=== PATIENT | female | born 1945 | race Caucasian/White ===

== ENCOUNTER 2020-08-18 21:33 | Emergency (ER) | payer MEDICARE, BC, OTHER ==
[~2020-08-18] VITALS: Ht 162.6 cm; Wt 55.5 kg
[~2020-08-18 21:33] MED LIST: ASPI325T8 PO; CALC600T23 PO; CHOL200074 PO; CRESTOR40 MG PO; CYAN1TAB28 PO; ESOM40CA25 PO; INSU100V31 SQ; LORA0.5T PO; RISE35TA3 PO; VITA-8 PO
--- NOTE | 2020-08-18 21:43 | PHYS DOC ---
General Adult HPI: HPI: ".. My was diagnosed with Covid on Sunday.. now I feeling .. like I got the flu... Generalized malaise, fever, chills, overall body aches ,... Tired, fatigued a week ...I probably got the Covid also..;." Patient is a 75 year old female who presents with above hx and complaints of COVID exposure with her now also complaining of fever, chills, malaise, arthralgia, myalgia, and fatigue. Patient normally follows with Dr. Nelson for care. No history of specific ill ill contacts outside the family other than her who was recently diagnosed with Covid. Patient denies any use immunosuppression. No recent travel. Review of Systems: Review of Systems: Constitutional: Complains of fever or chills Eyes: Denies change in visual acuity HENT: Denies nasal congestion or sore throat. Complains of loss of taste Respiratory: Complaints of cough Cardiovascular: Denies chest pain or edema GI: Denies abdominal pain, nausea, vomiting, bloody stools or diarrhea : Denies dysuria Musculoskeletal: Denies back pain or joint pain Integument: Denies rash Neurologic: Denies headache, focal weakness or sensory changes Endocrine: Denies polyuria or polydipsia Lymphatic: Denies swollen glands Psychiatric: Denies depression or anxiety Family History: Family History: has Covid Current Medications: Current Meds: See nursing for home meds Allergies: Allergies: Allergies Coded Allergies Type Severity Reaction Last Updated Verified Penicillins Adverse Reaction Intermediate Rash 03/09/14 Yes Physical Exam: PE: Constitutional: Moderate acute distress, non-toxic appearance. [] HENT: Normocephalic, atraumatic, bilateral external ears normal, oropharynx dry, no oral exudates, nose swollen turbinates and clear rhinorrhea Eyes: PERRLA, EOMI, conjunctiva normal, no discharge. [] Neck: Normal range of motion, no tenderness, supple, no stridor. [] Cardiovascular: Tachycardia heart rate regular rhythm, no murmur [] Lungs & Thorax: Bilateral breath sounds equal apex with few scattered wheezes on auscultation [] Abdomen: Bowel sounds normal, soft, no tenderness, no masses, no pulsatile masses. [] Skin: Warm, dry, no erythema, no rash. [Poor turgor Back: No tenderness, no CVA tenderness. [] Extremities: No tenderness, no cyanosis, no clubbing, ROM intact, no edema. Arthritic changes. No cording appreciated Neurologic: Alert and oriented X 3, moves all extremities on request, does have distal sensory, no focal deficits noted. [] Psychologic: Affec anxious, judgement normal, mood normal. [] EKG: EKG: My interpretation EKG shows a sinus rhythm at 91 bpm. Low voltage in limb leads. No findings of acute STEMI of contralateral changes. [] Radiology/Procedures: Radiology/Procedures: [][address] [place] [address] [id number] IMAGING REPORT Signed PATIENT: LAURIE MCINTYRE ACCOUNT: [id number] : 1945 LOCATION: ER AGE: 75 SEX: F EXAM STATUS: PRE ER ORD. PHYSICIAN: JAVIER MOJICA MD REASON: dyspnea PROCEDURE: PORTABLE CHEST 1V XR CHEST 1V History: Reason: dyspnea / Spl. Instructions: / History: Comparison: None. Findings: No consolidation or pleural effusion. Normal heart size. No pneumothorax. Impression: 1. No acute cardiopulmonary process. Electronically signed by: Osman Christina DO (08/18/2020 11:01 PM) [facility] DICTATED AND SIGNED BY: OSMAN CHRISTINA DO DATE: 08/18/20 3090 CC: JAVIER MOJICA MD; CL[facility] NELSON Heart Score: HEART Score for Chest Pain: HEART Score for Chest Pain Response (Comments) Value History Slighlty/Non-Suspicious 0 ECG Normal 0 Age > 65 2 Risk Factors 1 or 2 Risk Factors 1 Troponin < Normal Limit 0 Total 3 Risk Factors: Risk Factors: DM, Current or recent (<one month) smoker, HTN, HLP, family history of CAD, obesity. Risk Scores: Score 0 - 3: 2.5% MACE over next 6 weeks - Discharge Home Score 4 - 6: 20.3% MACE over next 6 weeks - Admit for Clinical Observation Score 7 - 10: 72.7% MACE over next 6 weeks - Early Invasive Strategies Course & Med Decision Making: Course & Med Decision Making Pertinent Labs and Imaging studies reviewed. (See chart for details) Patient to take Eliquis 2.5 mg twice a day. Patient to use MDI 2 puffs 4 times a day. Take Zithromax 250 mg a day. Patient take Tylenol and ibuprofen for discomfort. Self isolate. Wear a mask when she is around others or outside her home. Mass must cover nose and mouth. Patient to follow-up with primary care. Patient to use her home oxygen monitor to evaluate periodically through the d ay for decrease in saturations. Return if any concerns. Patient advised he most likely has Covid due to her close exposure. Impression: 1. Viral syndrome 2. History of close exposure to Covid- 3. Mild anemia hemoglobin 11.6 4. Thrombocytopenia 137 5. Mild dehydration elevated creatinine 1.3 6. Diabetes glucose 215 [] Dragon Disclaimer: Dragon Disclaimer: This electronic medical record was generated, in whole or in part, using a voice recognition dictation system. Departure Departure: Referrals: CLIFF NELSON (PCP) Scripts Apixaban (ELIQUIS) 2.5 Mg Tablet 2.5 MG PO BID for COVID for 14 Days, #28 TAB Prov: JAVIER MOJICA MD 08/18/20 Azithromycin (ZITHROMAX) 250 Mg Tablet 250 MG PO DAILY for ANTI-BIOTIC, #5 TAB 0 Refills Prov: JAVIER MOJICA MD 08/18/20 Benita Disclaimer This chart was dictated in whole or in part using Voice Recognition software in a busy, high-work load, and often noisy Emergency Department environment. It may contain unintended and wholly unrecognized errors or omissions. JAVIER MOJICA MD Aug 18, 2020 21:43
[2020-08-18] MEDS ORDERED: IV RINGERS SOLUTION,LACTATED 1,000 ML IV SCH (21:45)
[2020-08-18] MEDS ORDERED: ALBUTEROL SULFATE 8GM INHALER. INH ONE (21:45)
[2020-08-18] MEDS ORDERED: ACETAMINOPHEN 500 MG TABLET PO ONE (22:00)
[2020-08-18 22:40] LABS: BASO % 1 % (0-3); EOS % 1 % (0-3); HEMATOCRIT 35.1 % (36.0-47.0); HEMOGLOBIN 11.6 g/dL (12.0-15.5); LYMPH % 21 % (24-48); MEAN CORPUSCULAR HEMOGLOBIN 32 pg (25-35); MEAN CORPUSCULAR HGB CONC 33 g/dL (31-37); MEAN CORPUSCULAR VOLUME 97 fL (79-100); MONO # 0.5 x10^3/uL (0.0-1.1); MONO % 10 % (0-9); NEUT # 3.1 x10^3uL (1.8-7.7); NEUT % 67 % (31-73); PLATELET COUNT 137 x10^3/uL (140-400); RED BLOOD COUNT 3.62 x10^6/uL (3.50-5.40); RED CELL DISTRIBUTION WIDTH 13.2 % (11.5-14.5); WHITE BLOOD COUNT 4.7 x10^3/uL (4.0-11.0)
[2020-08-18 22:49] LABS: INFLUENZA A PATIENT NEGATIVE (NEGATIVE); INFLUENZA B PATIENT NEGATIVE (NEGATIVE)
[2020-08-18 22:58] LABS: CALCIUM 9.3 mg/dL (8.5-10.1); CREATININE 1.3 mg/dL (0.6-1.0); GFR 40.2; POTASSIUM 3.7 mmol/L (3.5-5.1)
--- NOTE | 2020-08-18 23:03 | RAD ---
XR CHEST 1V History: Reason: dyspnea / Spl. Instructions: / History: Comparison: None. Findings: No consolidation or pleural effusion. Normal heart size. No pneumothorax. Impression: 1. No acute cardiopulmonary process. Electronically signed by: Osman Christina DO (08/18/2020 11:01 PM) [facility]
[2020-08-18 23:10] LABS: ALBUMIN 3.4 g/dL (3.4-5.0); DIRECT BILIRUBIN 0.2 mg/dL (0.0-0.2); MAGNESIUM 1.9 mg/dL (1.8-2.4); TOTAL BILIRUBIN 0.6 mg/dL (0.2-1.0); TOTAL PROTEIN 7.9 g/dL (6.4-8.2)
[2020-08-18 23:40] VITALS: BP 117/51
[2020-08-18] MEDS ORDERED: AZITHROMYCIN 250 MG TABLET. PO ONE (23:45)
[2020-08-18] MEDS ORDERED: APIXABAN 5 MG TABLET. PO ONE (23:45)
[2020-08-18] MEDS ORDERED: AZIT250T PO (23:58)
[2020-08-18] MEDS ORDERED: APIX2.5T PO (23:58)
[2020-08-19 00:23] LABS: BGAS PH 7.48 (7.35-7.45)
--- NOTE | 2020-08-19 02:32 | EKG ---
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
== END 2020-08-19 00:54 | disposition home or self-care (01) ==
LOC: ER 21:33
DX: U07.1 COVID-19 (principal); B34.9 Viral infection, unspecified; D64.9 Anemia, unspecified; D69.6 Thrombocytopenia, unspecified; E86.0 Dehydration; R79.89 Other specified abnormal findings of blood chemistry; E11.9 Type 2 diabetes mellitus without complications; Z88.0 Allergy status to penicillin
CPT/HCPCS: 36415; 36600; 71045; 80048; 80076; 82550; 82803; 82947; 83690; 83735; 84443; 84484; 85025; 85379; 85610; 85730; 86140; 87040; 87804; 93005; 94640; 96360; 96361; 99285; C9803; J7120; U0003; 94664

== ENCOUNTER 2020-08-20 23:43 | Emergency (ER) | payer MEDICARE, BC, OTHER ==
[~2020-08-20] VITALS: Ht 162.6 cm; Wt 55.5 kg
[~2020-08-20 23:43] MED LIST changes: +APIX2.5T PO; +AZIT250T PO
[2020-08-21] MEDS ORDERED: ONDANSETRON PF 4 MG/2 ML VIAL. ONE (00:06)
--- NOTE | 2020-08-21 00:13 | PHYS DOC ---
Past History Past Medical History: Cancer, GERD, High Cholesterol, Hypotension Additional Past Medical Histor: colon cancer, gastroparesis Past Surgical History: Cholecystectomy, , Hysterectomy, Other Additional Past Surgical Histo: colon resection, trigger finger release, carpal tunnel release Alcohol Use: None Adult General Chief Complaint Chief Complaint: WEAKNESS/GENERALIZED HPI HPI Patient is a 75-year-old female who presents with a chief complaint of fatigue and shakiness over the past day. States she has a past medical history significant for insulin-dependent diabetes, and high cholesterol and positive Covid test yesterday. States her also has Covid. States that over the last day she is just felt more fatigued than usual, and a little shaky. States that she did eat a little bit yesterday but not quite the same as she usually does. States she did take her insulin regimen exactly the same way however. Denies fevers, headache, chest pain, shortness of breath, abdominal pain, dysuria, hematuria or blood in the stool. Endorses mild nausea but no vomiting. Denies any recent travel or traumas. Denies any alcohol or drug use. Denies any numbness/weakness/tingling, confusion or slurred speech. States she was seen in the emergency department and started on azithromycin but not sure why. Review of Systems Review of Systems Review of systems otherwise unremarkable except noted in HPI Current Medications Current Medications Current Medications Medications (Trade) Dose Ordered Sig/Delia Start Time Stop Time Status Last Admin Dose Admin Lactated Ringer's 1,000 ml @ 1,000 mls/hr 1X ONCE 08/21/20 00:15 08/21/20 01:14 UNV 08/21/20 00:10 1,000 MLS/HR Ondansetron HCl (Zofran) 4 mg 1X ONCE 08/21/20 00:15 08/21/20 00:16 UNV 08/21/20 00:10 4 MG Allergies Allergies Allergies Coded Allergies Type Severity Reaction Last Updated Verified Penicillins Adverse Reaction Intermediate Rash 08/18/20 Yes Physical Exam Physical Exam Constitutional: Well developed, well nourished, no acute distress, non-toxic appearance. [] HENT: Normocephalic, atraumatic, oropharynx moist, no oral exudates, nose normal. [] Eyes: conjunctiva normal, no discharge. [] Neck: Normal range of motion, no tenderness, supple, no stridor. [] Cardiovascular:Heart rate regular rhythm, no murmur [] Lungs & Thorax: Generalized rhonchi with no wheeze and no accessory muscle use. No tachypnea. 95% on room air. Abdomen: soft, no tenderness, no masses, no pulsatile masses. [] Skin: Warm, dry, no erythema, no rash. [] Back: No tenderness, no CVA tenderness. [] Extremities: No tenderness, no cyanosis, no clubbing, ROM intact, no edema. [] Neurologic: Alert and oriented X 3, normal motor function, normal sensory function, no focal deficits noted. [] Psychologic: Affect normal, judgement normal, mood normal. [] Current Patient Data Vital Signs Vital Signs Date Time Temp Pulse Resp B/P (MAP) Pulse Ox O2 Delivery O2 Flow Rate FiO2 08/20/20 23:56 99.8 80 18 92/42 (59) 95 Room Air EKG EKG Rate of 76, QRS of 90, QTc of 418, no STEMI [] Radiology/Procedures Radiology/Procedures [] Heart Score Risk Factors: Risk Factors: DM, Current or recent (<one month) smoker, HTN, HLP, family history of CAD, obesity. Risk Scores: Risk Factors: DM, Current or recent (<one month) smoker, HTN, HLP, family history of CAD, obesity. Course & Med Decision Making Course & Med Decision Making Patient is a 75-year-old female, Covid positive who presents with fatigue and shakiness for day Vital signs initially notable for hypotension which resolved in the ED after fluid resuscitation. Physical exam noted above. EKG noted above with no STEMI. Patient placed on the monitor with IV access established and IV fluid resuscitation given. Given ibuprofen. Patient took Tylenol just before coming. Given Zofran. Laboratory analysis notable for a mild elevation in creatinine, most likely due to dehydration. TSH and blood cultures pending and will be back on this visit. On reassessment patient stated she was feeling a lot better and was able to take p.o. crackers and soda in the ED. Vital signs improved, patient was feeling better and was ready to be discharged home. Advised to follow-up with primary care on Sunday. Gave strict return pr ecautions to the ED. Advised to keep quarantine as she was doing. Patient was grateful, verbalized understanding and agreed with plan of discharge. [] Dragon Disclaimer Dragon Disclaimer This electronic medical record was generated, in whole or in part, using a voice recognition dictation system. Departure Departure: Impression: Primary Impression: Fatigue Additional Impression: Lab test positive for detection of COVID-19 virus Disposition: 01 DC HOME SELF CARE/HOMELESS Condition: GOOD Referrals: CLIFF MENDIETA (PCP) Patient Instructions: Fatigue Additional Instructions: You have been diagnosed with COVID-19. It is an infection caused by a new type of coronavirus. COVID-19 will cause cold-like or mild flu symptoms in most. It can cause more severe symptoms like problems breathing in some. There is no treatment for COVID-19. The body will clear the infection over time. Self-care will help to ease discomfort. Steps to Take: Self-Care Rest as needed. Healthy habits may help you feel better. Steps include: Choose healthy foods including fruits and vegetables. Drink water throughout the day. Get plenty of sleep each night. If you smoke, try to quit. It may ease breathing. Avoid alcohol. Keep Others Healthy The virus can spread to others. Droplets are released every time you sneeze or cough. The droplets can get into the mouth, nose, or eyes of people near you and lead to infection. To lower the chances of spreading COVID-19 to others: Stay at home until your doctor has said it is safe to leave. If you tested positive this will mean staying isolated until both of the following are true: At least 7 days have passed since the start of illness. You are free of fever for at least 72 hours without the use of medicine. During this time: - Avoid public areas, events, or transportation. Do not return to work or school until your doctor has said it is safe to do so. - Call ahead if you need to go to a medical center. Let them know you may have COVID-19. It will help them guide you where to go. They may also ask you to wear a facemask when you come to the office. - If you call for emergency medical services, let them know you may have COVID-19. While at home: - Try to avoid close contact with others. Stay about 6 feet away. - If possible, spend most of your time in a separate room from others. - Use a face mask if you will be in close contact with others such as sharing a room or vehicle. - Have someone wipe down common surfaces in the home. Use household back up scan coordinator every day on areas like doorknobs, counters, or sinks. - Cough or sneeze into a tissue. Throw the tissue away right after use. If a tissue is not available, cough or sneeze into your elbow. - Wash your hands often. Wash them after sneezing or coughing. Use soap and water and wash for at least 20 seconds. Alcohol based hand pattern cleaner can be used if soap and water is not available. - Do not prepare food for others. Avoid sharing personal items like forks, spoons, or toothbrushes. - Avoid close contact with pets while you are sick. There is no evidence of the virus passing to pets. This is a safety step until more is known about this virus. Isolation can be frustrating. Social interaction can help. Keep in touch with friends and family through phone and tech options. You can still interact with others in your home, just keep a safe distance of about 6 feet. Follow-up: Your doctors office will check in with you to see if there are any changes in your health. You may be asked to keep track of symptoms to share with them. They will also let you know when you are clear to be in public again. Problems to Look Out For: Contact your doctor if your recovery is not going as you expect. Get emergency care if you have problems such as: - Trouble breathing - Nonstop chest pain or pressure - Changes in awareness, confusion, or problems waking - Lips or face have bluish color - Worsening of symptoms If you think you have an emergency, call for emergency medical services right away. As taken from [facility] Scripts Ondansetron Hcl (ZOFRAN) 4 Mg Tablet 1 TAB PO PRN Q6HRS PRN for NAUSEA, #12 TAB 1 Refill Prov: DIYA WHALEY MD 08/21/20 Problem Qualifiers DIYA WHALEY MD Aug 21, 2020 00:13
[2020-08-21] MEDS ORDERED: ONDANSETRON PF 4 MG/2 ML VIAL. IVP ONE (00:15)
[2020-08-21] MEDS ORDERED: IV RINGERS SOLUTION,LACTATED 1,000 ML IV ONE ×2 (00:15→01:15)
--- NOTE | 2020-08-21 00:21 | EKG ---
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
--- NOTE | 2020-08-21 00:40 | RAD ---
AP portable chest radiograph 08/20/2020 Clinical History: Cough and congestion. An AP erect portable digital radiograph of the chest was obtained. Comparison study is dated 08/18/2020. The cardiac silhouette is normal in size. The thoracic aorta is mildly tortuous. Atherosclerotic calc ification thoracic aorta is seen. No acute pulmonary infiltrate is seen. No pleural effusion or pneum othorax is noted. The osseous structures are unchanged. Impression: No acute abnormality is seen. Electronically signed by: Gregory Lane MD (08/21/2020 12:37 AM) [id number]
[2020-08-21 01:14] LABS: CALCIUM 8.9 mg/dL (8.5-10.1); CREATININE 1.2 mg/dL (0.6-1.0); POTASSIUM 4.1 mmol/L (3.5-5.1)
[2020-08-21 01:15] LABS: BASO % 0 % (0-3); EOS % 0 % (0-3); HEMOGLOBIN 10.7 g/dL (12.0-15.5); LYMPH # 0.4 x10^3/uL (1.0-4.8); LYMPH % 10 % (24-48); MEAN CORPUSCULAR HEMOGLOBIN 32 pg (25-35); MEAN CORPUSCULAR HGB CONC 33 g/dL (31-37); MEAN CORPUSCULAR VOLUME 96 fL (79-100); MONO # 0.3 x10^3/uL (0.0-1.1); MONO % 6 % (0-9); NEUT # 3.8 x10^3uL (1.8-7.7); NEUT % 84 % (31-73); PLATELET COUNT 119 x10^3/uL (140-400); RED BLOOD COUNT 3.34 x10^6/uL (3.50-5.40); RED CELL DISTRIBUTION WIDTH 12.9 % (11.5-14.5); WHITE BLOOD COUNT 4.5 x10^3/uL (4.0-11.0)
[2020-08-21 01:20] LABS: ALBUMIN 2.9 g/dL (3.4-5.0); ALBUMIN/GLOBULIN RATIO 0.6 (1.0-1.7); TOTAL BILIRUBIN 0.7 mg/dL (0.2-1.0); TOTAL PROTEIN 7.4 g/dL (6.4-8.2)
[2020-08-21 02:22] LABS: CLARITY,URINE HAZY; COLOR,URINE STRAW; GLUCOSE,URINE 250 mg/dL (NEG)
[2020-08-21 02:26] LABS: BILIRUBIN,URINE NEG (NEG)
[2020-08-21 02:27] LABS: BACTERIA,URINE MOD /HPF (0-FEW); NITRITE,URINE NEG (NEG); SQUAMOUS EPITHELIAL CELL,UR FEW /LPF
[2020-08-21 03:19] VITALS: BP 109/49
[2020-08-21] MEDS ORDERED: ONDA4TAB7 PO (03:22)
== END 2020-08-21 03:25 | disposition home or self-care (01) ==
LOC: ER 23:43
DX: U07.1 COVID-19 (principal); R53.83 Other fatigue; K21.9 Gastro-esophageal reflux disease without esophagitis; E78.00 Pure hypercholesterolemia, unspecified; E11.9 Type 2 diabetes mellitus without complications; Z90.49 Acquired absence of other specified parts of digestive tract; Z90.710 Acquired absence of both cervix and uterus; Z98.890 Other specified postprocedural states; Z88.0 Allergy status to penicillin
CPT/HCPCS: 36415; 71045; 80053; 81001; 83605; 83735; 84443; 84484; 85025; 87040; 87086; 93005; 96361; 96374; 99285; J2405; J7120

== ENCOUNTER → 2021-03-11 | Outpatient (CLI) | payer MEDICARE, BC, OTHER ==
[~2021-03-11] MED LIST changes: +ONDA4TAB7 PO
--- NOTE | 2021-03-15 16:06 | RAD ---
EXAM: Bilateral digital screening mammogram with tomosynthesis. HISTORY: 76-year-old female presents for screening mammography. TECHNIQUE: Full-field digital craniocaudal and mediolateral oblique 2D and 3D tomosynthesis images of both breasts are obtained for evaluation. Computer aided detection was applied. COMPARISON: 09/25/2017 BREAST PARENCHYMAL DENSITY: Level C - Heterogeneously dense. FINDINGS: There is no new suspicious mass, microcalcification or region of architectural distortion. There are stable areas of benign asymmetry within the right greater than left breast. IMPRESSION: BI-RADS Category 2: Benign finding(s). RECOMMENDATION: Annual mammography is recommended. If your mammogram demonstrates that you have dense breast tissue, which could hide abnormalities, and if you have other risk factors for breast cancer that have been identified, you might benefit from s upplemental screening tests that may be suggested by your ordering physician. Dense breast tissue, i n and of itself, is a relatively common condition. This information is not provided to cause undue c oncern, but rather to raise your awareness and to promote discussion with your physician regarding th e presence of other risk factors, in addition to dense breast tissue. A report of your mammography re sults will be sent to you and your physician. You should contact your physician if you have any ques tions or concerns regarding this report. Mammography is a sensitive method for finding small breast cancers, but it does not detect them all a nd is not a substitute for careful clinical examination. A negative mammogram does not negate a clin ically suspicious finding and should not result in delay in biopsying a clinically suspicious abnorma lity. PQRS compliance statement - Patient information was entered into a reminder system with a target due date for the next mammogram. "Our facility is accredited by the [employer] Mammography Program." Electronically signed by: Allyssa Bishop MD (03/15/2021 4:03 PM) [id number]
== END ==
LOC: MAMMO 11:15
PROVIDERS: ATTEND Family Medicine
DX: Z12.31 Encounter for screening mammogram for malignant neoplasm of breast (principal)
CPT/HCPCS: 77063; 77067